=== PATIENT | male | born 1960 | race Caucasian/White ===

== ENCOUNTER 2019-06-23 14:06 | Inpatient (IN) | payer OTHER ==
[2019-06-23] MEDS ORDERED: SODIUM CHLORIDE FLUSH SYRINGE 10 ML IV PRN (14:12)
[2019-06-23] MEDS ORDERED: MORPHINE IV ONE (14:14)
[2019-06-23] MEDS ORDERED: PLAVIX PO ONE (14:15)
[2019-06-23] MEDS ORDERED: ZOFRAN IV ONE (14:15)
[2019-06-23] MEDS ORDERED: HEPARIN 10,000 UNITS/10 ML IV ONE (14:16)
[2019-06-23] MEDS ORDERED: HEPARIN/NS 5000 UNIT/500ML(CATH LAB) 1,000 ML IR ONE (14:18)
[2019-06-23] MEDS ORDERED: CALAN ONE (14:18)
[2019-06-23] MEDS ORDERED: XYLOCAINE 2% INFILTRATI ONE (14:18)
[2019-06-23] MEDS ORDERED: NITROGLYCERIN SYRINGE 3 ML ONE (14:19)
[2019-06-23] MEDS ORDERED: PHENYLEPHRINE/NS Syringe 1,000 MCG/10 ML IV ONE (14:20)
[2019-06-23] MEDS ORDERED: XYLOCAINE CARDIAC IV ONE (14:20)
[2019-06-23] MEDS ORDERED: ADRENALIN ONE (14:20)
--- NOTE | 2019-06-23 14:21 | Emergency Department Report ---
ED Chest Pain HPI - General Chief Complaint: Chest Pain Stated Complaint: STEMI Time Seen by Provider: 06/23/19 14:13 Source: patient, EMS (verbal report received from EMS. EMS documentation not available at time of chart dictation ), RN notes reviewed Mode of arrival: Stretcher Limitations: Language Barrier (the patient speaks some Azeri. This provider is conversational and Croatian. In addition, prehospital provider, Michael, is a mashpee Croatian speaker, and translated additional history) - History of Present Illness Initial Comments: This is a 59-year-old gentleman. This patient is not known to this provider previously. The patient is brought to the hospital by emergency medical services as a possible code STEMI. Apparently, the patient started having chest pain earlier on today. He pointed to the left side of his chest, and said that he was having sweating. EMS gave nitroglycerin, and aspirin. EMS reports patient's blood pressure was in the 190s upon arrival. Patient states that he is comfortable at this time, and rates his pain score as a 3 out of 10. He denied DVT, pulmonary embolism risk factors, and hematemesis, bright red blood per rectum. His prehospital EKG was consistent with inferior wall STEMI. His emergency room EKG was consistent with inferior wall STEMI. The EKG was transmitted to our certified ophthalmic technologist, Dr. Naa Sanchez, who agreed that the patient meets criteria for emergent catheterization. He requests 600 mg Plavix load, heparin push, heparin infusion. Requested hospital team admit the patient to the medical service. Hospital physician, Dr. Rooney, to admit the patient post catheterization. MD Complaint: chest pain -: Gradual, hour(s) Onset: during rest Pain Location: left chest Pain Radiation: none Severity scale (0 -10): 3 Quality: aching Consistency: intermittent Improves With: nothing Worsens With: nothing re: diaphoresis Aspirin use within the Past 7 Days: (0) No - Related Data On Oral Contraceptives: No Allergies Allergy/AdvReac Type Severity Reaction Status Date / Time No Known Allergies Allergy Unverified 06/23/19 14:14 Heart Score - HEART Score History: Moderately suspicious EKG: Significant ST-depression Age: 45-65 Risk factors: No known risk factors Troponin: 1-3x normal limit HEART Score: 5 - Critical Actions Critical Actions: 4-6 pts:12-16.6% risk of adverse cardiac event. Should be admitted ED Review of Systems ROS: Stated complaint: STEMI Other details as noted in HPI Constitutional: denies: fever Eyes: denies: eye discharge ENT: denies: congestion Respiratory: denies: wheezing Cardiovascular: chest pain. denies: syncope Gastrointestinal: denies: hematemesis, melena, hematochezia Genitourinary: denies: dysuria Musculoskeletal: denies: back pain Skin: denies: lesions Neurological: denies: weakness Psychiatric: denies: depression Hematological/Lymphatic: denies: easy bleeding ED Past Medical Hx - Past Medical History Previous Medical History?: No - Surgical History Past Surgical History?: No - Social History Smoking Status: Current Every Day Smoker Substance Use Type: Alcohol ED Physical Exam - General Limitations: Language Barrier General appearance: alert, in no apparent distress - Head Head exam: Present: atraumatic, normocephalic - Eye Eye exam: Present: normal appearance, EOMI. Absent: nystagmus - ENT ENT exam: Present: normal exam, normal orophraynx, mucous membranes moist, normal external ear exam - Neck Neck exam: Present: normal inspection, full ROM. Absent: tenderness, meningismus - Respiratory Respiratory exam: Present: normal lung sounds bilaterally. Absent: respiratory distress - Cardiovascular Cardiovascular Exam: Present: regular rate, normal rhythm, normal heart sounds. Absent: bradycardia, tachycardia, irregular rhythm, systolic murmur, diastolic murmur, rubs, gallop - GI/Abdominal GI/Abdominal exam: Present: soft. Absent: distended, tenderness, guarding, rebound, rigid, pulsatile mass - Rectal Rectal exam: Present: deferred - Extremities Exam Extremities exam: Present: normal inspection, full ROM, other (2+ pulses noted in the bilateral upper, lower extremities. There is no long bone tenderness. Musculoskeletal compartments are soft. The pelvis is stable.). Absent: pedal edema, joint swelling, calf tenderness - Back Exam Back exam: Present: normal inspection, full ROM. Absent: tenderness, CVA tender ness (R), CVA tenderness (L), paraspinal tenderness, vertebral tenderness - Neurological Exam Neurological exam: Present: alert, oriented X3, other (there is no facial droop. The tongue is midline. Extraocular movements are intact bilaterally. Patient speaking in full complete sentences. Shoulder shrug is intact bilaterally. Hearing is grossly intact bilaterally. 5/5 strength 4 extremities. Sensation intact to light touch in 4 extremities.) - Psychiatric Psychiatric exam: Present: normal affect, normal mood - Skin Skin exam: Present: warm, dry, intact, normal color. Absent: rash ED Course Vital Signs 06/23/19 06/23/19 06/23/19 14:08 14:18 14:20 Temperature 98.1 F Pulse Rate 72 70 66 Respiratory 16 18 18 Rate Blood Pressure 117/64 Blood Pressure 163/84 141/89 [Right] O2 Sat by Pulse 100 100 100 Oximetry 06/23/19 06/23/19 06/23/19 14:49 16:31 16:32 Temperature Pulse Rate 57 L 54 L Respiratory 16 Rate Blood Pressure 113/65 113/65 Blood Pressure [Right] O2 Sat by Pulse 100 Oximetry ROCKY score - Rocky Score Age > 65: (0) No Aspirin use within the Past 7 Days: (0) No 3 or more CAD Risk Factors: (0) No 2 or more Angina events in past 24 hrs: (0) No Known CAD with more than 50% Stenosis: (0) No Elevated Cardiac Markers: (1) Yes ST Deviation Greater than 0.5mm: (1) Yes ROCKY Score: 2 ED Medical Decision Making - Lab Data Result diagrams: 06/23/19 16:08 06/23/19 Unknown Vital Signs 06/23/19 06/23/19 06/23/19 14:08 14:18 14:20 Temperature 98.1 F Pulse Rate 72 70 66 Respiratory 16 18 18 Rate Blood Pressure 117/64 Blood Pressure 163/84 141/89 [Right] O2 Sat by Pulse 100 100 100 Oximetry 06/23/19 06/23/19 06/23/19 14:49 16:31 16:32 Temperature Pulse Rate 57 L 54 L Respiratory 16 Rate Blood Pressure 113/65 113/65 Blood Pressure [Right] O2 Sat by Pulse 100 Oximetry - EKG Data -: EKG Interpreted by Ks - EKG Data When compared to previous EKG there are: previous EKG unavailable Interpretation: acute KS 06/23/19 16:43 EKG is a sinus rhythm, shows inferior wall STEMI. - Radiology Data Radiology results: report reviewed, image reviewed X-ray the chest is negative for acute disease - Medical Decision Making Differential diagnosis, including not limited to: Pericarditis, inferior wall STEMI Assessment and plan: 59-year-old gentleman with history and physical suggesting inferior wall STEMI. Blood pressure is 140 at the time of exit from the emergency room. During his ER stay, he appeared to be quite comfortable, and not in any acute distress. Did not offer any historical aspects to suggest pericarditis or myocarditis. I think acute aortic dissection is unlikely, as blood pressure is improved, x-ray the chest is unremarkable, the patient has equal pulses in the upper, lower extremities. Critical Care Time: Yes Critical care time in (mins) excluding proc time.: 35 Critical care attestation.: If time is entered above; I have spent that time in minutes in the direct care of this critically ill patient, excluding procedure time. ED Disposition Clinical Impression: STEMI (ST elevation myocardial infarction) Qualifiers: Involved coronary artery: unspecified coronary artery Qualified Code(s): I21.3 - ST elevation (STEMI) myocardial infarction of unspecified site Disposition: OP ADMIT IP TO THIS HOSP Is pt being admited?: Yes Does the pt Need Aspirin: No (given by ems prior to arrival) Condition: Critical
[2019-06-23] MEDS ORDERED: HEPARIN/ 0.45% NACL-25,000 UNIT/500 ML 25,000 UNIT/500 ML BAG ONE (14:22)
[2019-06-23] MEDS ORDERED: ATROPINE 0.1% (CARDIAC) ONE (14:22)
[2019-06-23] MEDS ORDERED: NACL 0.9% 1000 ML 1,000 ML ONE (14:23)
[2019-06-23] MEDS: VERSED ONE ×2 (14:40→14:42)
[2019-06-23] MEDS: SUBLIMAZE ONE ×3 (14:40→14:43)
--- NOTE | 2019-06-23 14:42 | History and Physical Report ---
History of Present Illness Chief complaint: My chest was hurting History of present illness: 59 YO Male with Nicotine Dependence presents to ED for evaluation. Pt states that he was in his usual state of health and was at work. Pt reports acute onset of pain in his chest. Pt states that pain is 6/10, Midsternal, worsened with exertion, relieved with rest, associated with shortness of breath. EMS notified, and upon arrival the patient was found to be in distress with EKG findings consistent with STEMI. A code STEMI was called and the patient transported to [facility]. Pt seen and evaluated in ED and found to have STEMI. Pt taken emergently to the veterinary laboratory diagnostician. Cardiology notified in ED. No further history obtainable. No prior admission for review. All listed medication reconciled at time of admission. Past History Past Medical History: other (see hpi) Past Surgical History: No surgical history, Other (reviewed) Social history: single, smoking Family history: no significant family history, other (redemption) Medications and Allergies Allergies Allergy/AdvReac Type Severity Reaction Status Date / Time No Known Allergies Allergy Unverified 06/23/19 14:14 Active Meds: Active Medications Heparin Sodium/Sodium Chloride (Heparin/ 0.45% Nacl-25,000 Unit/500 Ml) 25,000 unit in 500 mls @ 20 mls/hr IV TITRATE LIZETH; Protocol Sodium Chloride (Sodium Chloride Flush Syringe 10 Ml) 10 ml IV BID LIZETH Sodium Chloride (Sodium Chloride Flush Syringe 10 Ml) 10 ml IV PRN PRN PRN Reason: LINE FLUSH Review of Systems Constitutional: no weight loss, no weight gain, no fever, no chills Ears, nose, mouth and throat: no ear pain, no ear discharge, no tinnitis, no n ose pain, no nasal congestion, no nasal discharge Cardiovascular: chest pain, shortness of breath, no edema, no syncope, no claudication, no phlebitis Respiratory: no cough, no cough with sputum, no excessive sputum, no hemoptysis Gastrointestinal: no abdominal pain, no nausea, no constipation Genitourinary Male: no hematuria, no flank pain, no discharge, no urinary frequency Rectal: no pain, no incontinence, no bleeding Musculoskeletal: no neck stiffness, no neck pain, no shooting arm pain, no arm numbness/tingling, no shooting leg pain, no leg numbness/tingling Integumentary: no rash, no pruritis, no redness, no sores, no wounds, no jaundice Neurological: no transient paralysis, no paralysis, no weakness, no parathesias, no numbness, no tingling, no seizures, no tremors Psychiatric: no change in sleep habits, no sleep disturbances, no insomnia, no hypersomnia, no change in libido, no suicidal ideation, no disorientation Endocrine: no cold intolerance, no heat intolerance, no polyphagia, no excessive thirst, no weight change Hematologic/Lymphatic: no easy bruising, no easy bleeding, no lymphadenopathy, no lymphedema Allergic/Immunologic: no urticaria, no allergic rhinitis, no wheezing, no anaphylaxis, no angioedema Exam - Constitutional Vitals: Temp Pulse Resp BP Pulse Ox 98.1 F 66 18 141/89 100 06/23/19 14:08 06/23/19 14:20 06/23/19 14:20 06/23/19 14:20 06/23/19 14:20 General appearance: Present: mild distress - EENT Eyes: Present: PERRL ENT: hearing intact, clear oral mucosa - Neck Neck: Present: supple, normal ROM - Respiratory Respiratory effort: normal Respiratory: bilateral: CTA - Cardiovascular Heart Sounds: Present: S1 & S2. Absent: rub, click - Extremities Extremities: pulses symmetrical, No edema Peripheral Pulses: within normal limits - Abdominal General gastrointestinal: Present: soft, non-tender, non-distended, normal bowel sounds Male genitourinary: Present: normal - Integumentary Integumentary: Present: clear, warm, dry - Musculoskeletal Musculoskeletal: gait normal, strength equal bilaterally - Psychiatric Psychiatric: appropriate mood/affect, intact judgment & insight - Neurologic Neurologic: CNII-XII intact, moves all extremities Results - Labs CBC & Chem 7: 06/23/19 Unknown Assessment and Plan - Patient Problems (1) STEMI (ST elevation myocardial infarction) Current Visit: Yes Status: Acute Qualifiers: Involved coronary artery: unspecified coronary artery Qualified Code(s): I21.3 - ST elevation (STEMI) myocardial infarction of unspecified site Plan to address problem: Admit to ICU, Cardiology consulted in Ed, Pt taken urgently to Production Assembler for surgical intervention, Heparin drip, Plavix loading in ED. (2) Nicotine dependence with withdrawal Current Visit: Yes Status: Acute Qualifiers: Nicotine product type: cigarettes Qualified Code(s): F17.213 - Nicotine dependence, cigarettes, with withdrawal Plan to address problem: Smoking cessation counseling, +10min, supportive care. (3) DVT prophylaxis Current Visit: Yes Status: Acute Plan to address problem: SCD to BLE while in bed, Heparin drip too.
[2019-06-23] MEDS: HEPARIN 10,000 UNITS/10 ML ONE ×2 (14:43→14:52)
[2019-06-23 14:49] LABS: Alanine Aminotransferase 14 units/L (7-56); Albumin 4.4 g/dL (3.9-5); BUN/Creatinine Ratio 20; Blood Urea Nitrogen 16 mg/dL (9-20); Calcium 8.8 mg/dL (8.4-10.2); Hemolysis Index 21
[2019-06-23 14:54] LABS: INR 0.98 (0.87-1.13); Partial Thromboplastin Time 23.5 Sec. (24.2-36.6)
[2019-06-23] MEDS ORDERED: AGGRASTAT DRIP (12.5 MG/250 ML) 12,500 MCG/250 ML BAG IV ONE (14:58)
[2019-06-23] MEDS ORDERED: HEPARIN/ 0.45% NACL-25,000 UNIT/500 ML 25,000 UNIT/500 ML BAG IV SCH ×2 (15:00→16:00)
[2019-06-23 15:03] LABS: HDL Cholesterol 39 mg/dL (40-59); LDL Cholesterol,Direct 192 mg/dL (50-130)
--- NOTE | 2019-06-23 15:09 | XRay Report ---
CHEST 1 VIEW INDICATION: Chest Pain. COMPARISON: None. FINDINGS: Support devices: None. Heart: Normal. Lungs/Pleura: No acute pulmonary or pleural findings. IMPRESSION: 1. No acute findings. Signer Name: Ji White MD Signed: 06/23/2019 3:05 PM Workstation Name: [id number]
--- NOTE | 2019-06-23 15:40 | Event Note ---
Date: 06/23/19 Emergency cardiac cath performed for acute inferior STEMI, no complications. 1. 100% proximal RCA infarct lesion was successfully treated with serial 3.0-3.5 DE stents. 2. Diffuse moderate-moderately severe disease of the left coronary system for med Rx and symptom guided future intervention. 3. LVEF 50-55%. Admit to CCU on GDMT for post NM management.
[2019-06-23] MEDS ORDERED: AGGRASTAT DRIP (12.5 MG/250 ML) 12,500 MCG/250 ML BAG IV SCH (16:00)
[2019-06-23] MEDS ORDERED: NACL 0.9% 1000 ML 1,000 ML IV SCH (16:00)
--- NOTE | 2019-06-23 16:12 | Cardiac Catherization Report ---
CARDIAC CATHETERIZATION AND CORONARY ANGIOPLASTY REPORT REASON FOR PROCEDURE: The patient is a 59-year-old man who presented to the Emergency Room with chest pain. EKG was acute ST elevation inferior wall myocardial infarction. Emergency cardiac catheterization protocol was activated. The patient was taken emergently to the cardiac catheterization lab. PROCEDURES: 1. Left heart catheterization. 2. Selective left and right coronary angiography. 3. Left ventricle angiography. 4. Coronary angioplasty and stenting of the right coronary artery. 5. Sedation time, start 1440, end 1513. The patient was prepped and draped in a sterile fashion after informed consent. The right femoral artery was entered using the Seldinger technique, followed by the placement of a 6-Kiswahili sheath. Selective left and right coronary angiography was performed using #4 right and left Mustapha catheters. The right Mustapha was used for left ventricular angiography. The angiograms were reviewed. CORONARY ANGIOGRAPHY: Left main coronary artery contained mild irregularities. The left anterior descending artery contained a 60-70% stenosis of its proximal segment, followed by another 60% stenosis of the mid vessel. A small caliber mid diagonal branch of the LAD contained diffuse moderate to severe atherosclerosis. The large obtuse marginal branch of the circumflex artery contained a sequential 60-70% stenosis in its mid segment. The right coronary artery was dominant. This vessel was completely occluded in its proximal segment. This was the infarct related lesion. Left ventricular systolic function was at lower limits of normal, ejection fraction 50-55%. CORONARY ANGIOPLASTY: We proceeded with ad hoc, primary angioplasty of the right coronary artery. We exchanged for a #4 right Mustapha guiding catheter and advanced to the right coronary ostium. A 0.014 inch Mobile Game Engineer 50 guidewire was introduced, successfully penetrating the occluded vessel. Following wire placement, a 3.0 mm balloon catheter was then used to predilate the stenosis, reestablishing ROCKY 3 flow. We then deployed a 3.5 x 18 mm drug-eluting stent, covering the entire lesional segment of the primary lesion. The stent was inflated to optimal pressures. Following stenting of the primary lesion, we noted another, secondary 70-80% stenosis of the mid vessel. We selected another 3.0 x 18 mm drug-eluting stent and deployed across the mid segment. Following stenting of both lesions, there was an excellent angiographic result at treated sites, pentecostalism of ROCKY 3 flow, excellent angiographic result. The catheters and the sheaths were removed, hemostasis achieved using an Angio-Seal device. The patient was returned to the post-procedure unit in stable condition. There were no complications. CONCLUSION: 1. Acute inferior wall ST elevation myocardial infarction. 2. Emergency cardiac catheterization. 3. 100% occlusion of the proximal right coronary artery was the infarct-related lesion. 4. Successful primary angioplasty and stenting with deployment of serial, 3.0-3.5 mm drug-eluting stents. 5. Moderate diffuse atherosclerosis of the circumflex and LAD is recommended for aggressive risk factor modification, medical therapy and symptom and exercise stress test follow up as a guide to future revascularization. 6. Left ventricular systolic function is well preserved, ejection fraction 50-55%. [facility]# [id number] CIARRA/EDWAR
[2019-06-23] MEDS: IMDUR PO SCH (16:31)
[2019-06-23] MEDS: METOPROLOL PO SCH ×2 (16:32→23:14)
[2019-06-23 16:39] LABS: Basophils % (Auto) 0.3 % (0.0-1.8); Eosinophils % (Auto) 0.3 % (0.0-4.3); Hematocrit 40.7 % (35.5-45.6); Hemoglobin 13.8 gm/dl (11.8-15.2); Lymphocytes # (Auto) 0.9 K/mm3 (1.2-5.4); Lymphocytes % (Auto) 10.3 % (13.4-35.0); Mean Corpuscular HGB Conc 34 % (32-34); Mean Corpuscular Volume 90 fl (84-94); Monocytes # (Auto) 0.5 K/mm3 (0.0-0.8); Platelet Count 215 K/mm3 (140-440); Red Blood Count 4.54 M/mm3 (3.65-5.03); Red Cell Distribution Width 13.6 % (13.2-15.2)
[2019-06-23] MEDS: AGGRASTAT DRIP (12.5 MG/250 ML) 12,500 MCG/250 ML BAG IV SCH (16:39)
[2019-06-23 16:45] LABS: INR 1.13 (0.87-1.13)
[2019-06-23] MEDS: SODIUM CHLORIDE FLUSH SYRINGE 10 ML IV SCH (23:12)
--- NOTE | 2019-06-24 02:16 | XRay Report ---
CHEST 1 VIEW INDICATION / CLINICAL INFORMATION: Chest pain COMPARISON: None available. FINDINGS: SUPPORT DEVICES: None. HEART / MEDIASTINUM: No significant abnormality. LUNGS / PLEURA: No significant pulmonary or pleural abnormality. No pneumothorax. ADDITIONAL FINDINGS: No significant additional findings. IMPRESSION: 1. No acute findings. Signer Name: Meet Rodrigues MD Signed: 06/24/2019 2:11 AM Workstation Name: [email or web address]
[2019-06-24] MEDS: AGGRASTAT DRIP (12.5 MG/250 ML) 12,500 MCG/250 ML BAG IV SCH (04:10)
[2019-06-24 05:24] LABS: Basophils % (Auto) 0.2 % (0.0-1.8); Eosinophils # (Auto) 0.1 K/mm3 (0.0-0.4); Eosinophils % (Auto) 0.6 % (0.0-4.3); Hematocrit 35.5 % (35.5-45.6); Hemoglobin 12.2 gm/dl (11.8-15.2); Lymphocytes # (Auto) 1.6 K/mm3 (1.2-5.4); Lymphocytes % (Auto) 17.5 % (13.4-35.0); Mean Corpuscular HGB Conc 34 % (32-34); Mean Corpuscular Volume 90 fl (84-94); Monocytes # (Auto) 0.7 K/mm3 (0.0-0.8); Platelet Count 220 K/mm3 (140-440); Red Blood Count 3.96 M/mm3 (3.65-5.03); Red Cell Distribution Width 13.6 % (13.2-15.2)
[2019-06-24 05:41] LABS: BUN/Creatinine Ratio 30; Blood Urea Nitrogen 18 mg/dL (9-20); Calcium 7.8 mg/dL (8.4-10.2); Hemolysis Index 12
[2019-06-24] MEDS: SODIUM CHLORIDE FLUSH SYRINGE 10 ML IV SCH ×2 (09:12→23:02)
[2019-06-24] MEDS: PLAVIX PO SCH (09:13)
[2019-06-24] MEDS: ECOTRIN PO SCH (09:13)
[2019-06-24] MEDS: METOPROLOL PO SCH ×2 (09:15→23:00)
[2019-06-24] MEDS: IMDUR PO SCH (09:24)
--- NOTE | 2019-06-24 10:42 | Consultation ---
History of Present Illness - Reason for Consult Consult date: 06/24/19 STEMI Requesting physician: MANUELA ADAM - History of Present Illness 59 y/o male presents to ED with chest pain. Found to have an acute inferior NM and taken urgently to the photo lab manager. He there received 2 YUDI to the RCA as it was 100% occluded. Patient was transitioned to the ICU for further monitoring. Overnight no events. No chest pain. BP stable. Aggrastat ran but is now done. No other continuous drips. Remainder is negative. Past History Past Medical History: other (see hpi) Past Surgical History: No surgical history, Other (reviewed) Social history: single, smoking Family history: no significant family history, other (redemption) Medications and Allergies Allergies Allergy/AdvReac Type Severity Reaction Status Date / Time No Known Allergies Allergy Unverified 06/23/19 14:14 Home Medications Medication Instructions Recorded Confirmed Last Taken Type No Known Home Medications [No 06/24/19 06/24/19 Unknown History Reported Home Medications] Active Meds: Active Medications Aspirin (Ecotrin) 325 mg PO QDAY [facility] Last Admin: 06/24/19 09:13 Dose: 325 mg Documented by: Atorvastatin Calcium (Lipitor) 40 mg PO QHS [facility] Last Admin: 06/23/19 23:12 Dose: 40 mg Documented by: Clopidogrel Bisulfate (Plavix) 75 mg PO QDAY [facility] Last Admin: 06/24/19 09:13 Dose: 75 mg Documented by: Isosorbide Mononitrate (Imdur) 30 mg PO QDAY [facility] Last Admin: 06/24/19 09:24 Dose: Not Given Documented by: Metoprolol Tartrate (Lopressor) 25 mg PO BID [facility] Last Admin: 06/24/19 09:15 Dose: Not Given Documented by: Sodium Chloride (Sodium Chloride Flush Syringe 10 Ml) 10 ml IV BID [facility] Last Admin: 06/24/19 09:12 Dose: 10 ml Documented by: Sodium Chloride (Sodium Chloride Flush Syringe 10 Ml) 10 ml IV PRN PRN PRN Reason: LINE FLUSH Review of Systems All systems: negative Exam - Constitutional Vitals: Temp Pulse Resp BP Pulse Ox 98.5 F 59 L 16 106/59 97 06/24/19 04:00 06/24/19 10:16 06/24/19 10:16 06/24/19 10:16 06/24/19 10:16 General appearance: Present: no acute distress, well-nourished - EENT Eyes: Present: PERRL, EOM intact ENT: hearing intact - Neck Neck: Present: supple, normal ROM - Respiratory Respiratory effort: normal Respiratory: bilateral: CTA - Cardiovascular Rhythm: regular Heart Sounds: Present: S1 & S2 - Extremities Extremities: no ischemia - Abdominal General gastrointestinal: Present: soft, non-tender, normal bowel sounds Male genitourinary: Present: deferred - Rectal Rectal Exam: deferred Results - Labs CBC & Chem 7: 06/24/19 04:41 06/24/19 04:41 Labs: Abnormal lab results 06/23/19 06/23/19 06/23/19 Range/Units 15:24 16:08 16:08 Lymph % (Auto) 10.3 L (13.4-35.0) % Lymph # 0.9 L (1.2-5.4) K/mm3 Seg Neutrophils % 83.1 H (40.0-70.0) % APTT 161.0 H* (24.2-36.6) Sec. Activated Clotting Time 219 H (74-137) Creatinine (0.8-1.5) mg/dL Glucose (75-100) mg/dL Calcium (8.4-10.2) mg/dL Total Creatine Kinase (55-170) units/L CK-MB (CK-2) (0.0-4.0) ng/mL CK-MB (CK-2) Rel Index (0-4) Troponin T (0.00-0.029) ng/mL Triglycerides (2-149) mg/dL Cholesterol (50-199) mg/dL LDL Cholesterol Direct (50-130) mg/dL HDL Cholesterol (40-59) mg/dL 06/23/19 06/23/19 06/23/19 Range/Units 16:08 16:08 19:57 Lymph % (Auto) (13.4-35.0) % Lymph # (1.2-5.4) K/mm3 Seg Neutrophils % (40.0-70.0) % APTT (24.2-36.6) Sec. Activated Clotting Time (74-137) Creatinine (0.8-1.5) mg/dL Glucose (75-100) mg/dL Calcium (8.4-10.2) mg/dL Total Creatine Kinase 669 H (55-170) units/L CK-MB (CK-2) (0.0-4.0) ng/mL CK-MB (CK-2) Rel Index (0-4) Troponin T 0.587 H* D 2.790 H* D (0.00-0.029) ng/mL Triglycerides (2-149) mg/dL Cholesterol (50-199) mg/dL LDL Cholesterol Direct (50-130) mg/dL HDL Cholesterol (40-59) mg/dL 06/23/19 06/23/19 06/24/19 Range/Units Unknown Unknown 04:41 Lymph % (Auto) (13.4-35.0) % Lymph # (1.2-5.4) K/mm3 Seg Neutrophils % 74.7 H (40.0-70.0) % APTT 23.5 L (24.2-36.6) Sec. Activated Clotting Time (74-137) Creatinine (0.8-1.5) mg/dL Glucose 241 H (75-100) mg/dL Calcium (8.4-10.2) mg/dL Total Creatine Kinase (55-170) units/L CK-MB (CK-2) (0.0-4.0) ng/mL CK-MB (CK-2) Rel Index (0-4) Troponin T 0.037 H (0.00-0.029) ng/mL Triglycerides 236 H (2-149) mg/dL Cholesterol 242 H (50-199) mg/dL LDL Cholesterol Direct 192 H (50-130) mg/dL HDL Cholesterol 39 L (40-59) mg/dL 06/24/19 Range/Units 04:41 Lymph % (Auto) (13.4-35.0) % Lymph # (1.2-5.4) K/mm3 Seg Neutrophils % (40.0-70.0) % APTT (24.2-36.6) Sec. Activated Clotting Time (74-137) Creatinine 0.6 L (0.8-1.5) mg/dL Glucose 132 H (75-100) mg/dL Calcium 7.8 L (8.4-10.2) mg/dL Total Creatine Kinase 1125 H (55-170) units/L CK-MB (CK-2) 94.0 H (0.0-4.0) ng/mL CK-MB (CK-2) Rel Index 8.3 H (0-4) Troponin T 2.870 H* (0.00-0.029) ng/mL Triglycerides (2-149) mg/dL Cholesterol (50-199) mg/dL LDL Cholesterol Direct (50-130) mg/dL HDL Cholesterol (40-59) mg/dL - Imaging and Cardiology Chest x-ray: image reviewed (Cardiomegaly but otherwise clear lung thomas) Assessment and Plan 59 y/o male with CAD, s/p STEMI with 2 YUDI to RCA 1. ASA, sTATin, beta maribel and likely kirti therapy 2. lifestyle modification 3. smoking cessation 4. Stable for transfer out of ICU
--- NOTE | 2019-06-24 10:50 | Progress Note ---
Assessment and Plan Assessment and plan: --STEMI (ST elevation myocardial infarction) Current Visit: Yes Status: Acute Emergency cardiac cath s/p PCI to RCA Patient feels better no chest pain or shortness of breath Continue current management, cardiology following -- Nicotine dependence with withdrawal Current Visit: Yes Status: Chronic Smoking cessation counseling, Nicotine Patch as needed supportive care. --Dyslipidemia Current Visit: Yes Status: Acute low-cholesterol diet, statin -- DVT prophylaxis Current Visit: Yes Status: Acute SCD to BLE while in bed, Heparin drip Cardiology evaluation and recommendations noted and appreciated Patient is stable to be transferred out of ICU to telemetry Possible discharge tomorrow if stable Critical care time 32 minutes History Interval history: Patient seen and examined medical records reviewed Patient with acute ST elevation [place] ,s/p emergent heart cath S/P PCI to RCA Patient feels better denies chest pain or shortness of breath Alert awake oriented Vital signs noted Hospitalist Physical - Constitutional Vitals: Temp Pulse Resp BP Pulse Ox 98.5 F 59 L 16 106/59 97 06/24/19 04:00 06/24/19 10:16 06/24/19 10:16 06/24/19 10:16 06/24/19 10:16 General appearance: Present: no acute distress, well-nourished - EENT Eyes: Present: PERRL, EOM intact - Neck Neck: Present: supple, normal ROM - Respiratory Respiratory effort: normal Respiratory: bilateral: diminished, negative: rales, rhonchi, wheezing - Cardiovascular Rhythm: regular Heart Sounds: Present: S1 & S2 - Extremities Extremities: no ischemia, No edema - Abdominal General gastrointestinal: soft, non-tender, non-distended, normal bowel sounds - Integumentary Integumentary: Present: clear, warm - Psychiatric Psychiatric: appropriate mood/affect, cooperative - Neurologic Neurologic: CNII-XII intact, moves all extremities Results - Labs CBC & Chem 7: 06/24/19 04:41 06/24/19 04:41 Labs: Laboratory Last Values WBC 9.3 K/mm3 (4.5-11.0) 06/24/19 04:41 RBC 3.96 M/mm3 (3.65-5.03) 06/24/19 04:41 Hgb 12.2 gm/dl (11.8-15.2) 06/24/19 04:41 Hct 35.5 % (35.5-45.6) 06/24/19 04:41 MCV 90 fl (84-94) 06/24/19 04:41 MCH 31 pg (28-32) 06/24/19 04:41 MCHC 34 % (32-34) 06/24/19 04:41 RDW 13.6 % (13.2-15.2) 06/24/19 04:41 Plt Count 220 K/mm3 (140-440) 06/24/19 04:41 Lymph % (Auto) 17.5 % (13.4-35.0) 06/24/19 04:41 Emery % (Auto) 7.0 % (0.0-7.3) 06/24/19 04:41 Eos % (Auto) 0.6 % (0.0-4.3) 06/24/19 04:41 Baso % (Auto) 0.2 % (0.0-1.8) 06/24/19 04:41 Lymph # 1.6 K/mm3 (1.2-5.4) 06/24/19 04:41 Emery # 0.7 K/mm3 (0.0-0.8) 06/24/19 04:41 Eos # 0.1 K/mm3 (0.0-0.4) 06/24/19 04:41 Baso # 0.0 K/mm3 (0.0-0.1) 06/24/19 04:41 Seg Neutrophils % 74.7 % (40.0-70.0) H 06/24/19 04:41 Seg Neutrophils # 7.0 K/mm3 (1.8-7.7) 06/24/19 04:41 PT 12.7 Sec. (12.2-14.9) 06/23/19 Unknown INR 0.98 (0.87-1.13) 06/23/19 Unknown APTT 23.5 Sec. (24.2-36.6) L 06/23/19 Unknown Activated Clotting Time 219 (74-137) H 06/23/19 15:24 Sodium 137 mmol/L (137-145) 06/24/19 04:41 Potassium 4.1 mmol/L (3.6-5.0) 06/24/19 04:41 Chloride 102.6 mmol/L (98-107) 06/24/19 04:41 Carbon Dioxide 22 mmol/L (22-30) 06/24/19 04:41 Anion Gap 17 mmol/L 06/24/19 04:41 BUN 18 mg/dL (9-20) 06/24/19 04:41 Creatinine 0.6 mg/dL (0.8-1.5) L 06/24/19 04:41 Estimated GFR > 60 ml/min 06/24/19 04:41 BUN/Creatinine Ratio 30 % 06/24/19 04:41 Glucose 132 mg/dL (75-100) H 06/24/19 04:41 Calcium 7.8 mg/dL (8.4-10.2) L 06/24/19 04:41 Magnesium 2.10 mg/dL (1.7-2.3) 06/23/19 16:08 Total Bilirubin 0.40 mg/dL (0.1-1.2) 06/23/19 Unknown AST 13 units/L (5-40) 06/23/19 Unknown ALT 14 units/L (7-56) 06/23/19 Unknown Alkaline Phosphatase 83 units/L (35-129) 06/23/19 Unknown Total Creatine Kinase 1125 units/L (55-170) H 06/24/19 04:41 CK-MB (CK-2) 94.0 ng/mL (0.0-4.0) H 06/24/19 04:41 CK-MB (CK-2) Rel Index 8.3 (0-4) H 06/24/19 04:41 Troponin T 2.870 ng/mL (0.00-0.029) H* 06/24/19 04:41 Total Protein 7.0 g/dL (6.3-8.2) 06/23/19 Unknown Albumin 4.4 g/dL (3.9-5) 06/23/19 Unknown Albumin/Globulin Ratio 1.7 % 06/23/19 Unknown Triglycerides 236 mg/dL (2-149) H 06/23/19 Unknown Cholesterol 242 mg/dL (50-199) H 06/23/19 Unknown LDL Cholesterol Direct 192 mg/dL (50-130) H 06/23/19 Unknown HDL Cholesterol 39 mg/dL (40-59) L 06/23/19 Unknown Cholesterol/HDL Ratio 6.20 % 06/23/19 Unknown Blood Type A POSITIVE 06/23/19 15:50 Antibody Screen Negative 06/23/19 15:50 Active Medications - Current Medications Current Medications: Generic Name Dose Route Start Last Admin Trade Name Freq PRN Reason Stop Dose Admin Aspirin 325 mg 06/24/19 10:00 06/24/19 09:13 Ecotrin PO 325 mg QDAY LIZETH Administration Atorvastatin Calcium 40 mg 06/23/19 22:00 06/23/19 23:12 Lipitor PO 40 mg QHS LIZETH Administration Clopidogrel Bisulfate 75 mg 06/24/19 10:00 06/24/19 09:13 Plavix PO 75 mg QDAY LIZETH Administration Isosorbide Mononitrate 30 mg 06/23/19 16:00 06/24/19 09:24 Imdur PO Not Given QDAY LIZETH Metoprolol Tartrate 25 mg 06/23/19 16:00 06/24/19 09:15 Lopressor PO Not Given BID LIZETH Sodium Chloride 10 ml 06/23/19 22:00 06/24/19 09:12 Sodium Chloride Flush Syringe 10 Ml IV 10 ml BID LIZETH Administration Sodium Chloride 10 ml 06/23/19 14:12 Sodium Chloride Flush Syringe 10 Ml IV PRN PRN LINE FLUSH
--- NOTE | 2019-06-24 11:30 | Progress Note ---
Assessment and Plan Acute inferior STEMI s/p PCI of the proximal RCA using 3.0-3.5 DE stents. Diffuse moderate-moderately severe disease of the left coronary system for medical therapy and symptom guided future intervention. LVEF 50-55% Tobacco abuse Continue medical therapy for coronary artery disease including DAPT with plavix and aspirin. Advised smoking cessation. Ok for transfer to telemetry. For discharge planning in the next 24 hours. Subjective Date of service: 06/24/19 Interval history: Patient is resting in bed comfortably. He denies chest pain. Objective Vital Signs Temp Pulse Resp BP BP Pulse Ox 06/24/19 11:16 55 L 12 110/63 98 06/24/19 11:10 14 06/24/19 11:00 54 L 21 106/59 97 06/24/19 10:46 53 L 18 106/59 97 06/24/19 10:30 49 L 13 106/59 98 06/24/19 10:16 59 L 16 106/59 97 06/24/19 10:00 59 L 10 L 106/59 99 06/24/19 09:46 60 20 106/59 97 06/24/19 09:36 14 06/24/19 09:30 70 19 106/59 98 06/24/19 09:24 59 L 106/74 06/24/19 09:16 59 L 20 106/59 97 06/24/19 09:15 59 L 106/59 06/24/19 09:00 55 L 18 103/57 95 06/24/19 08:45 58 L 18 108/59 96 06/24/19 08:30 57 L 16 94/59 95 06/24/19 08:19 95 06/24/19 08:15 62 18 118/70 97 06/24/19 08:00 51 L 17 100/58 95 06/24/19 07:45 50 L 18 104/55 96 06/24/19 07:44 14 06/24/19 07:30 49 L 17 94/54 98 06/24/19 07:15 53 L 20 106/55 98 06/24/19 07:00 52 L 18 105/61 100 06/24/19 06:45 48 L 14 93/55 99 06/24/19 06:30 50 L 16 92/55 97 06/24/19 06:15 49 L 17 98/56 97 06/24/19 06:00 50 L 17 100/58 96 06/24/19 05:45 58 L 17 93/67 98 06/24/19 05:30 50 L 16 92/57 97 06/24/19 05:15 49 L 17 94/55 97 06/24/19 05:00 51 L 16 100/51 95 06/24/19 04:45 54 L 19 105/64 06/24/19 04:30 50 L 15 94/57 98 06/24/19 04:15 49 L 17 91/54 98 06/24/19 04:00 98.5 F 50 L 15 92/56 98 06/24/19 03:45 49 L 15 103/61 98 06/24/19 03:30 50 L 15 93/54 97 06/24/19 03:15 51 L 17 98/55 97 06/24/19 03:00 51 L 16 91/55 98 06/24/19 02:45 49 L 16 95/55 97 06/24/19 02:30 49 L 14 90/56 96 06/24/19 02:15 56 L 17 100/56 98 06/24/19 02:00 54 L 14 102/65 97 06/24/19 01:45 48 L 15 97/55 97 06/24/19 01:30 47 L 16 98/56 98 06/24/19 01:15 49 L 16 101/56 98 06/24/19 01:00 54 L 16 95/56 97 06/24/19 00:45 48 L 15 98/58 99 06/24/19 00:30 49 L 16 101/57 97 06/24/19 00:15 51 L 17 95/58 98 06/24/19 00:00 98.2 F 50 L 17 97/53 97 06/23/19 23:45 51 L 17 99/55 96 06/23/19 23:30 53 L 17 106/61 97 06/23/19 23:15 57 L 13 101/56 97 06/23/19 23:14 57 L 98/58 06/23/19 23:00 51 L 15 98/58 100 06/23/19 22:45 52 L 15 96/53 98 06/23/19 22:30 47 L 15 97/59 95 06/23/19 22:15 50 L 12 97/56 100 06/23/19 22:00 49 L 15 99/57 98 06/23/19 21:46 57 L 15 96/57 98 06/23/19 21:45 51 L 15 96/57 99 06/23/19 21:30 50 L 15 100/59 97 06/23/19 21:18 56 L 17 99/55 98 06/23/19 21:15 52 L 16 99/55 98 06/23/19 21:00 52 L 17 98/58 98 06/23/19 20:45 53 L 17 98/58 98 06/23/19 20:30 54 L 16 103/59 97 06/23/19 20:27 97.9 F 06/23/19 20:15 52 L 17 86/59 97 06/23/19 20:02 59 L 06/23/19 20:00 58 L 18 88/58 06/23/19 19:45 55 L 17 88/58 93 06/23/19 19:30 53 L 19 95/57 95 06/23/19 19:20 57 L 14 95/59 97 06/23/19 19:10 60 19 106/58 97 06/23/19 19:00 60 18 106/58 98 06/23/19 18:50 63 13 111/59 98 06/23/19 18:40 61 17 118/77 99 06/23/19 18:30 68 10 L 118/77 98 06/23/19 18:20 62 11 L 118/79 100 06/23/19 18:10 64 11 L 104/64 100 06/23/19 18:00 53 L 15 104/64 99 06/23/19 17:50 54 L 11 L 111/62 98 06/23/19 17:40 56 L 18 116/68 98 06/23/19 17:30 55 L 15 116/68 99 06/23/19 17:20 56 L 16 128/73 99 06/23/19 17:10 57 L 12 123/75 99 06/23/19 17:00 53 L 17 128/71 100 06/23/19 16:50 63 16 117/69 100 06/23/19 16:40 59 L 17 117/69 99 06/23/19 16:32 54 L 113/65 06/23/19 16:31 57 L 113/65 06/23/19 16:30 56 L 17 113/65 99 06/23/19 16:20 59 L 12 113/65 99 06/23/19 16:10 55 L 11 L 113/65 100 06/23/19 16:00 98.1 F 55 L 15 108/66 99 06/23/19 15:50 55 L 108/66 100 06/23/19 14:49 16 100 06/23/19 14:20 66 18 141/89 100 06/23/19 14:18 70 18 163/84 100 06/23/19 14:08 98.1 F 72 16 117/64 100 - Physical Examination General: No Apparent Distress HEENT: Positive: PERRL Neck: Positive: trachea midline Cardiac: Positive: Reg Rate and Rhythm Lungs: Positive: Normal Breath Sounds Neuro: Positive: Grossly Intact Incision: Cardiac Cath Site (right groin) Extremities: Absent: edema - Labs and Meds Cardiac Enzymes 06/23/19 06/24/19 Range/Units Unknown 04:41 AST 13 (5-40) units/L CK-MB (CK-2) 94.0 H (0.0-4.0) ng/mL Coagulation 06/23/19 06/23/19 Range/Units 16:08 Unknown PT 14.2 12.7 (12.2-14.9) Sec. INR 1.13 0.98 (0.87-1.13) APTT 161.0 H* 23.5 L (24.2-36.6) Sec. Lipids 06/23/19 Range/Units Unknown Triglycerides 236 H (2-149) mg/dL Cholesterol 242 H (50-199) mg/dL HDL Cholesterol 39 L (40-59) mg/dL Cholesterol/HDL Ratio 6.20 % CBC 06/23/19 06/24/19 Range/Units 16:08 04:41 WBC 8.4 9.3 (4.5-11.0) K/mm3 RBC 4.54 3.96 (3.65-5.03) M/mm3 Hgb 13.8 12.2 (11.8-15.2) gm/dl Hct 40.7 35.5 (35.5-45.6) % Plt Count 215 220 (140-440) K/mm3 Lymph # 0.9 L 1.6 (1.2-5.4) K/mm3 Tripp # 0.5 0.7 (0.0-0.8) K/mm3 Eos # 0.0 0.1 (0.0-0.4) K/mm3 Baso # 0.0 0.0 (0.0-0.1) K/mm3 Comprehensive Metabolic Panel 06/23/19 06/24/19 Range/Units Unknown 04:41 Sodium 138 137 (137-145) mmol/L Potassium 3.7 4.1 (3.6-5.0) mmol/L Chloride 98.5 102.6 (98-107) mmol/L Carbon Dioxide 23 22 (22-30) mmol/L BUN 16 18 (9-20) mg/dL Creatinine 0.8 0.6 L (0.8-1.5) mg/dL Glucose 241 H 132 H (75-100) mg/dL Calcium 8.8 7.8 L (8.4-10.2) mg/dL AST 13 (5-40) units/L ALT 14 (7-56) units/L Alkaline Phosphatase 83 (35-129) units/L Total Protein 7.0 (6.3-8.2) g/dL Albumin 4.4 (3.9-5) g/dL
[2019-06-24] MEDS: HEPARIN 10,000 UNITS/10 ML ONE (22:58)
[2019-06-25 04:58] LABS: Hematocrit 36.8 % (35.5-45.6); Hemoglobin 12.6 gm/dl (11.8-15.2)
--- NOTE | 2019-06-25 09:46 | Progress Note ---
Assessment and Plan Acute inferior STEMI s/p PCI of the proximal RCA using 3.0-3.5 DE stents. Diffuse moderate-moderately severe disease of the left coronary system for medical therapy and symptom guided future intervention. LVEF 50-55% Tobacco abuse Strongly encouraged smoking cessation. Continue medical therapy for coronary artery disease including DAPT with plavix and aspirin. Stable for discharge home today. As an outpatient thallium stress test will be recommended for 4-6 weeks for follow-up of diffuse, moderate severity lesions a history left coronary system. Patient will follow up with [facility] as scheduled July 01 at 250 pm. Subjective Date of service: 06/25/19 Interval history: Patient is resting in bed comfortably. He denies chest pain and shortness of breath. Objective Vital Signs Temp Pulse Resp BP Pulse Ox 06/25/19 07:40 98.4 F 57 L 18 111/61 97 06/25/19 05:08 65 06/25/19 04:00 65 06/25/19 03:25 99.2 F 06/25/19 03:24 64 18 106/59 98 06/25/19 00:00 59 L 06/24/19 23:00 69 127/57 06/24/19 22:56 99.3 F 06/24/19 22:54 69 18 127/57 98 06/24/19 20:09 62 20 117/61 98 06/24/19 20:00 68 06/24/19 16:00 14 06/24/19 15:26 98.4 F 56 L 18 115/62 98 06/24/19 15:00 53 L 18 95/62 98 06/24/19 14:50 63 18 107/61 98 06/24/19 14:40 51 L 16 107/61 98 06/24/19 14:30 53 L 20 107/61 96 06/24/19 14:20 54 L 20 113/65 97 06/24/19 14:10 57 L 13 104/65 06/24/19 14:00 76 21 104/65 06/24/19 13:50 62 22 104/65 98 06/24/19 13:40 58 L 20 104/65 97 06/24/19 13:30 54 L 18 104/65 100 06/24/19 13:20 54 L 17 110/59 98 06/24/19 13:10 55 L 15 110/59 99 06/24/19 13:00 50 L 17 110/59 98 06/24/19 12:50 56 L 16 111/59 97 06/24/19 12:30 59 L 17 111/59 97 06/24/19 12:16 59 L 25 H 107/60 97 06/24/19 12:00 51 L 17 107/60 97 06/24/19 11:46 55 L 16 110/64 98 06/24/19 11:30 56 L 17 110/64 98 06/24/19 11:16 55 L 12 110/63 98 06/24/19 11:10 14 06/24/19 11:00 54 L 21 106/59 97 06/24/19 10:46 53 L 18 106/59 97 06/24/19 10:30 49 L 13 106/59 98 06/24/19 10:16 59 L 16 106/59 97 06/24/19 10:00 59 L 10 L 106/59 99 06/24/19 09:46 60 20 106/59 97 - Physical Examination General: No Apparent Distress HEENT: Positive: PERRL Neck: Positive: trachea midline Cardiac: Positive: Reg Rate and Rhythm Lungs: Positive: Normal Breath Sounds Neuro: Positive: Grossly Intact Incision: Cardiac Cath Site (right groin) Extremities: Absent: edema - Labs and Meds CBC 06/25/19 Range/Units 04:12 Hgb 12.6 (11.8-15.2) gm/dl Hct 36.8 (35.5-45.6) % Plt Count 183 (140-440) K/mm3
[2019-06-25] MEDS: METOPROLOL PO SCH (10:02)
[2019-06-25] MEDS: IMDUR PO SCH (10:02)
[2019-06-25] MEDS: ECOTRIN PO SCH (10:03)
[2019-06-25] MEDS: PLAVIX PO SCH (10:03)
[2019-06-25] MEDS: SODIUM CHLORIDE FLUSH SYRINGE 10 ML IV SCH (10:03)
--- NOTE | 2019-06-25 10:12 | Discharge Summary ---
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 or go to emergency room Follow up with: TARA BETH MD [Staff Physician] - 7 Days PRIMARY CAREMD [Primary Care Provider] - 7 Days Prescriptions: Aspirin [Adult Aspirin] 81 mg PO DAILY #30 tablet. ISOSORBIDE MONOnitrate [Imdur ER] 30 mg PO QDAY #30 tablet AtorvaSTATin [Lipitor] 40 mg PO QHS #30 tablet Metoprolol [Lopressor TAB] 25 mg PO BID #60 tablet Clopidogrel [Plavix] 75 mg PO QDAY #30 tablet
[2019-06-25 11:15] VITALS: BP 109/64
== END 2019-06-25 13:50 | disposition home or self-care (01) | DRG 247 ==
LOC: ED 14:06 → CC1 14:12 → 4A 06-24 15:12
PROVIDERS: ADMIT Internal Medicine; ATTEND Internal Medicine
PROC: 4A023N7 Measurement of Cardiac Sampling and Pressure, Left Heart, Percutaneous Approach (ICD-10-PCS; principal; 2019-06-23)
PROC: 027035Z Dilation of Coronary Artery, One Artery with Two Drug-eluting Intraluminal Devices, Percutaneous Approach (ICD-10-PCS; 2019-06-23)
PROC: B2111ZZ Fluoroscopy of Multiple Coronary Arteries using Low Osmolar Contrast (ICD-10-PCS; 2019-06-23)
PROC: B2151ZZ Fluoroscopy of Left Heart using Low Osmolar Contrast (ICD-10-PCS; 2019-06-23)
DX: I21.19 ST elevation (STEMI) myocardial infarction involving other coronary artery of inferior wall (principal); F17.213 Nicotine dependence, cigarettes, with withdrawal; I25.10 Atherosclerotic heart disease of native coronary artery without angina pectoris; E78.5 Hyperlipidemia, unspecified; Z71.6 Tobacco abuse counseling; Z72.89 Other problems related to lifestyle
CPT/HCPCS: 36415; 71045; 80048; 80053; 80061; 82550; 82553; 83735; 84484; 85014; 85018; 85025; 85049; 85347; 85610; 85730; 86850; 86900; 86901; 92941; 93005; 93010; 93458; 96374; 99406; G0378; A9270-GY; C1725; C1760; C1769; C1874; C1887; C1894; C9606; J0171; J0461; J1644; J2001; J2250; J2270; J2370; J2405; J3010; J3246; J7030; Q9967